=== PATIENT | male | born 1965 | race African-American/Black ===

== ENCOUNTER 2020-03-13 15:18 | Emergency (ER) | payer OTHER ==
[~2020-03-13] VITALS: Ht 167.6 cm; Wt 68.0 kg
[2020-03-13 15:35] VITALS: TEMP 99.1
[2020-03-13 16:18] VITALS: BP 124/78
== END 2020-03-13 16:18 | disposition home or self-care (01) ==
LOC: ED 15:18
DX: H10.213 Acute toxic conjunctivitis, bilateral (principal)
CPT/HCPCS: 99281